=== PATIENT | female | born 1955 | race Caucasian/White ===

== ENCOUNTER 2017-04-08 13:07 | Emergency (ER) | payer OTHER ==
[~2017-04-08] VITALS: Ht 160 cm; Wt 67.1 kg
--- NOTE | 2017-04-08 13:23 | ED GENERAL ADULT ---
History of Present Illness General Chief Complaint: General Adult Stated Complaint: DIZZY,LT SHOULDER PAIN,NAUSEA S/P MOVING BOXES Source: patient Exam Limitations: no limitations Vital Signs & Intake/Output Vital Signs & Intake/Output Vital Signs Date Time Temp Pulse Resp B/P B/P Pulse O2 O2 Flow FiO2 Mean Ox Delivery Rate 04/08 1830 97.5 62 16 112/65 99 Room Air 04/08 1534 97.1 54 16 101/61 97 Room Air 04/08 1326 Room Air 04/08 1319 97.2 73 18 95/61 99 Room Air Allergies Coded Allergies: amoxicillin (Intermediate, RASH 04/08/17) Reconcile Medications Aspirin (Ecotrin*) 81 MG TABLET.DR 1 TAB PO DAILY HEART/BLOOD (Reported) Diclofenac Sodium (Voltaren) 1 % GEL..GRAM. 1 GM TOP PRN PAIN (Reported) apply to affected area(s) Estradiol (Estrace) 0.01 % CREAM.APPL 1 GM VG QMON HRT (Reported) Sertraline HCl 50 MG TABLET 1 TAB PO DAILY MENTAL HEALTH (Reported) Triage Note: C/O EPISODE OF DIZZINESS, SWEATING, CHEST PAIN, SOB AND NEAR SYNCOPE WHILE CARRYING HEAVY BOXES UPSTAIRS AT 0730 THIS AM, NOW C/O CHEST PRESSURE. EKG DONE ON ARRIVAL. Triage Nurses Notes Reviewed? yes Onset: Abrupt Duration: hour(s): Timing: recent history HPI: 04/08/17 3 PM 61-year-old female presents to the emergency department complaining of an episode of chest pressure and left arm numbness. She says she was walking up stairs today carrying boxes when she developed the above symptoms. She became profoundly diaphoretic and sat down. Now in emergency department she has no chest pain. Her initial EKG is normal. The onset of the symptoms were abrupt, the duration has been several hours, the severity is significant as her symptoms required her to come to the emergency department for care. She says she has a past medical history of high cholesterol. Past History Travel History Traveled to [place] past 21 day No Medical History Any Pertinent Medical History? see below for history Cardiovascular: hyperlipidemia Psychiatric: depression Surgical History Surgical History: none Psychosocial History What is your primary language Egyptian Tobacco Use: Never used ETOH Use: denies use Family History Hx Contributory? No Review of Systems Review of Systems Constitutional: Denies: fever. EENTM: Denies: visual changes. Respiratory: Denies: short of breath. Cardiovascular: Reports: chest pain. GI: Denies: abdominal pain. Genitourinary: Reports: no symptoms. Musculoskeletal: Reports: no symptoms. Skin: Denies: rash. Neurological/Psychological: Reports: no symptoms. Hematologic/Endocrine: Reports: no symptoms. Immunologic/Allergic: Reports: no symptoms. Physical Exam Physical Exam General Appearance: well developed/nourished, no apparent distress, alert, awake Head: atraumatic, normal appearance Eyes: Bilateral: normal appearance, PERRL, EOMI. Ears, Nose, Throat: normal pharynx, normal ENT inspection Neck: normal inspection, supple Respiratory: normal breath sounds, chest non-tender, no respiratory distress Cardiovascular: regular rate/rhythm Peripheral Pulses: 4+ radial (R), 4+ radial (L) Gastrointestinal: soft, non-tender Back: normal inspection, normal range of motion Extremities: normal inspection, no edema Neurologic/Psych: no motor/sensory deficits, awake, alert, oriented x 3 Skin: intact, normal color, warm/dry Core Measures ACS in differential dx? Yes CVA/TIA Diagnosis: No Severe Sepsis Present: No Septic Shock Present: No Progress Differential Diagnoses I considered the following diagnoses in my evaluation of the patient: [Acute coronary syndrome, pulmonary embolism, COPD exacerbation, pneumonia, pneumothorax] Plan of Care: Orders Procedure Date/time Status TROPONIN LEVEL 04/08 1714 Complete EKG 04/08 1714 Active TROPONIN LEVEL 04/08 1352 Complete COMPREHENSIVE METABOLIC PANEL 04/08 1352 Complete CBC WITHOUT DIFFERENTIAL 04/08 1352 Complete EKG 04/08 1309 Active Current Medications Sig/Shannan Start time Last Medication Dose Stop Time Status Admin Dicyclomine HCl 20 MG ONCE ONE 04/08 1545 CAN (Bentyl) 04/08 1546 Lorazepam 1 MG ONCE ONE 04/08 1545 CAN (Ativan) 04/08 1546 Laboratory Tests 04/08/17 1727: Troponin I < 0.01 04/08/17 1410: Anion Gap 10, Estimated GFR > 60, BUN/Creatinine Ratio 26.7 H, Glucose 99, Calcium 9.2, Total Bilirubin 0.3, AST 24, ALT 40, Alkaline Phosphatase 68, Troponin I < 0.01, Total Protein 6.8, Albumin 4.1, Globulin 2.7, Albumin/ Globulin Ratio 1.5, CBC w Diff NO MAN DIFF REQ, RBC 4.06 L, MCV 87.9, MCH 30.2, RDW 12.9, MPV 8.4, Gran % 64.7, Lymphocytes % 26.5, Monocytes % 5.7, Eosinophils % 2.5, Basophils % 0.6, Absolute Granulocytes 5.0, Absolute Lymphocytes 2.1, Absolute Monocytes 0.4, Absolute Eosinophils 0.2, Absolute Basophils 0, PUBS MCHC 34.3 Initial ED EKG: NSR Repeat EKG: unchanged Departure Departure Disposition: HOME OR SELF CARE Condition: Stable Clinical Impression Primary Impression: Chest pain Referrals: JUSTICE SNIDER MD (PCP/Family) Additional Instructions: 04/08/17 6:18 PM EKG is unchanged. Second troponin is negative. The patient was seen and evaluated in the ED by the chemical production engineer Dr. Burns who is in agreement with the plan. She will follow-up with Dr. Burns in the next 72 hours and return to the emergency department if symptoms recur Departure Forms: Customer Survey General Discharge Information Comments The patient's chest x-ray was negative She had 2 unchanged EKGs 2 nondetectable troponins She was seen and evaluated by the chemical production engineer in the ED She was asymptomatic She will follow-up with Dr. Burns this week or return to the emergency department if the symptoms recur Critical Care Note Critical Care Note Critical Care Time: non-applicable
[2017-04-08 14:14] LABS: ABSOLUTE BASOPHIL COUNT 0 /CUMM (0.0-0.2); ABSOLUTE EOSINOPHIL COUNT 0.2 /CUMM (0.0-0.7); ABSOLUTE LYMPH COUNT 2.1 /CUMM (1.2-3.4); ABSOLUTE MONOCYTE COUNT 0.4 /CUMM (0.10-0.60); BASOPHIL % 0.6 % (0.0-2.0); EOSINOPHIL % 2.5 % (0-5); GRANULOCYTE % 64.7 % (42.2-75.2); HEMATOCRIT 35.7 % (37-47); MEAN CORPUSCULAR HGB 30.2 PG (27.0-31.0); MEAN CORPUSCULAR HGB CONC 34.3 G/DL (33.0-37.0); MEAN CORPUSCULAR VOLUME 87.9 FL (81.0-99.0); MEAN PLATELET VOLUME 8.4 FL (7.4-10.4); PLATELET COUNT 228 /CUMM (130-400); RBC DISTRIBUTION WIDTH 12.9 % (11.5-14.5); RED BLOOD CELL CT 4.06 /CUMM (4.20-5.40); WHITE BLOOD CELL COUNT 7.7 /CUMM (4.8-10.8)
--- NOTE | 2017-04-08 14:36 | RADIOLOGY REPORT ---
EXAMINATION: CHEST 1 VIEW CLINICAL INFORMATION: Chest pain. COMPARISON: 07/28/2015. TECHNIQUE: An AP view of the chest is provided. FINDINGS: The cardiac silhouette is not enlarged. The mediastinal and hilar contours are unremarkable. There are neither pleural effusions nor pneumothoraces. There are no consolidations. The osseous structures are unremarkable. IMPRESSION: No evidence for acute disease.
[2017-04-08] MEDS ORDERED: ESTRACE42.5 GM VG (15:22)
[2017-04-08] MEDS ORDERED: SERTRALINE HCL50 MG PO (15:22)
[2017-04-08] MEDS ORDERED: ASPIRIN EC81 M1 PO (15:22)
[2017-04-08] MEDS ORDERED: VOLTAREN100 GM TOP (15:24)
--- NOTE | 2017-04-08 16:34 | Cons- Cardiology ---
General Information and HPI Consulting Request Date of Consult: 04/08/17 Requested By: Dr. Newell Reason for Consult: Chest pain History of Present Illness: The patient is a 61-year-old female with history of hyperlipidemia presenting with chest discomfort. She notes that she was carrying heavy boxes from her basement, and she subsequently developed discomfort radiating from the left upper chest to the left shoulder. The pain was a 3 out of 10 severity and was dull in character. She has not had similar pain in the past. The pain has improved somewhat, has not resolved. The pain is affected with moving her arm. She is followed in the office by Dr. Shine for hyperlipidemia and prediabetes. She does not have any other cardiac history. Allergies/Medications Allergies: Coded Allergies: amoxicillin (Intermediate, RASH 04/08/17) Home Med List: Aspirin (Ecotrin*) 81 MG TABLET.DR 1 TAB PO DAILY HEART/BLOOD (Reported) Diclofenac Sodium (Voltaren) 1 % GEL..GRAM. 1 GM TOP PRN PAIN (Reported) apply to affected area(s) Estradiol (Estrace) 0.01 % CREAM.APPL 1 GM VG QMON HRT (Reported) Sertraline HCl 50 MG TABLET 1 TAB PO DAILY MENTAL HEALTH (Reported) Current Medications: Current Medications Sig/Shannan Start time Last Medication Dose Route Stop Time Status Admin Dicyclomine HCl 20 MG ONCE ONE 04/08 1545 CAN PO 04/08 1546 Lorazepam 1 MG ONCE ONE 04/08 1545 CAN PO 04/08 1546 Review of Systems Review of Systems: No rash. No tremor. No melena. All other systems were reviewed, and were noted to be negative. Past History Travel History Traveled to [place] past 21 day No Medical History Cardiovascular: hyperlipidemia Psychiatric: depression Surgical History Surgical History: none Family History Relations & Conditions If Any: FATHER Diabetes mellitus Psychosocial History ETOH Use: denies use Exam & Diagnostic Data Vital Signs and I&O Vital Signs Date Time Temp Pulse Resp B/P B/P Pulse O2 O2 Flow FiO2 Mean Ox Delivery Rate 04/08 1534 97.1 54 16 101/61 97 Room Air 04/08 1326 Room Air 04/08 1319 97.2 73 18 95/61 99 Room Air Intake & Output 04/08 1600 04/08 0800 04/08 0000 04/07 1600 04/07 0800 04/07 0000 Intake Total Output Total Balance Patient 148 lb Weight Weight Reported by Patient Measurement Method Physical Exam: Gen: The patient is in no acute distress HEENT: Normal nose, ears, and oropharynx. Pupils equal bilaterally. Conjunctiva normal. Neck: Supple with no JVD, no masses, and no thyromegaly Lungs: Clear to auscultation with normal respiratory effort Heart: RRR, S1, S2, no murmurs. No peripheral edema, 2+ pulses in the lower extremities bilaterally Abdomen: Soft, nontender, no masses. No hepatomegaly. No splenomegaly Extremities: No clubbing or cyanosis. Normal muscle strength in the upper and lower extremities Skin: Normal skin turgor with no skin ulcers or lesions noted. Neuro: Cranial nerves intact. Sensation intact Psych: Alert and oriented 3 with appropriate affect Labs/Latrell Results: Laboratory Tests 04/08 1410 Chemistry Sodium (137 - 145 mmol/L) 138 Potassium (3.5 - 5.1 mmol/L) 4.0 Chloride (98 - 107 mmol/L) 103 Carbon Dioxide (22 - 30 mmol/L) 25 Anion Gap (5 - 16) 10 BUN (7 - 17 mg/dL) 24 H Creatinine (0.5 - 1.0 mg/dL) 0.9 Estimated GFR (>60 ml/min) > 60 BUN/Creatinine Ratio (7 - 25 %) 26.7 H Glucose (65 - 99 mg/dL) 99 Calcium (8.4 - 10.2 mg/dL) 9.2 Total Bilirubin (0.2 - 1.3 mg/dL) 0.3 AST (14 - 36 U/L) 24 ALT (9 - 52 U/L) 40 Alkaline Phosphatase (<127 U/L) 68 Troponin I (< 0.11 ng/ml) < 0.01 Total Protein (6.3 - 8.2 g/dL) 6.8 Albumin (3.5 - 5.0 g/dL) 4.1 Globulin (1.9 - 4.2 gm/dL) 2.7 Albumin/Globulin Ratio (1.1 - 2.2 %) 1.5 Hematology CBC w Diff NO MAN DIFF REQ WBC (4.8 - 10.8 /CUMM) 7.7 RBC (4.20 - 5.40 /CUMM) 4.06 L Hgb (12.0 - 16.0 G/DL) 12.3 Hct (37 - 47 %) 35.7 L MCV (81.0 - 99.0 FL) 87.9 MCH (27.0 - 31.0 PG) 30.2 RDW (11.5 - 14.5 %) 12.9 Plt Count (130 - 400 /CUMM) 228 MPV (7.4 - 10.4 FL) 8.4 Gran % (42.2 - 75.2 %) 64.7 Lymphocytes % (20.5 - 51.1 %) 26.5 Monocytes % (1.7 - 9.3 %) 5.7 Eosinophils % (0 - 5 %) 2.5 Basophils % (0.0 - 2.0 %) 0.6 Absolute Granulocytes (1.4 - 6.5 /CUMM) 5.0 Absolute Lymphocytes (1.2 - 3.4 /CUMM) 2.1 Absolute Monocytes (0.10 - 0.60 /CUMM) 0.4 Absolute Eosinophils (0.0 - 0.7 /CUMM) 0.2 Absolute Basophils (0.0 - 0.2 /CUMM) 0 PUBS MCHC (33.0 - 37.0 G/DL) 34.3 Diagnostic Data EKG Results EKG tracing is independently reviewed, and reveals normal sinus rhythm at 75 with short [place] interval and borderline T-wave abnormality CXR Results Negative Assessment/Plan Assessment/Plan The patient is a 61-year-old female with history of hyperlipidemia and borderline diabetes mellitus presenting with chest pain after carrying heavy boxes. The chest pain may be secondary to musculoskeletal injury, however she has risk factors for CAD, and acute coronary syndrome needs to be ruled out. Recommendations: * Check second troponin. * If myocardial infarctions ruled out with 2 negative troponin, then the patient to be discharged to home. She should follow up in the office for stress testing as an outpatient. Consult Acknowledgment - Thank you for your consult request.
[2017-04-08 18:30] VITALS: BP 112/65
== END 2017-04-08 18:34 ==
LOC: ERH 13:07
PROVIDERS: Emergency Medicine
DX: R07.9 Chest pain, unspecified (principal); M25.519 Pain in unspecified shoulder
CPT/HCPCS: 93005; 93010